=== PATIENT | female | born 1990 | race Two or more races ===

== ENCOUNTER 2020-02-25 10:28 | Emergency (ER) | payer OTHER ==
[~2020-02-25] VITALS: Ht 162.6 cm; Wt 140.6 kg
[2020-02-25] MEDS ORDERED: SPRINTEC 28 DA1 EACH (10:35)
[2020-03-13] MEDS ORDERED: AYGESTIN5 MG PO (12:15)
[2020-03-13] MEDS ORDERED: TRAMADOL PO (12:16)
== END 2020-02-25 18:17 | disposition home or self-care (01) ==
LOC: ER 10:28
DX: N39.0 Urinary tract infection, site not specified (principal); N93.8 Other specified abnormal uterine and vaginal bleeding; R10.2 Pelvic and perineal pain

== ENCOUNTER 2020-03-15 05:20 | Day surgery (SDC) | payer OTHER ==
[~2020-03-15 05:20] MED LIST: AYGESTIN5 MG PO; SPRINTEC 28 DA1 EACH; TRAMADOL PO
== END 2020-03-16 14:30 | disposition home or self-care (01) ==
LOC: CIR.AMB 05:20
PROVIDERS: ATTEND Student in an Organized Health Care Education/Training Program
DX: N93.8 Other specified abnormal uterine and vaginal bleeding (principal); Z30.430 Encounter for insertion of intrauterine contraceptive device; Z20.828 Contact with and (suspected) exposure to other viral communicable diseases

== ENCOUNTER 2021-07-28 13:15 | Inpatient (IN) | payer OTHER ==
[~2021-07-28] VITALS: Ht 162.6 cm; Wt 142.9 kg
[2021-07-28] MEDS ORDERED: CIPRO500 MG PO (15:41)
[2021-07-30] MEDS ORDERED: MEGESTROL ACETA40 MG (13:32)
== END 2021-08-01 20:31 | disposition home or self-care (01) | DRG 743 ==
LOC: OB/GYN 07-30 10:30 → O/R 07-30 11:49 → OB/GYN 07-30 11:49
PROVIDERS: ADMIT Specialist; ATTEND Specialist
PROC: 0DNW0ZZ Release Peritoneum, Open Approach (ICD-10-PCS; 2021-07-30)
PROC: 0DBU0ZZ Excision of Omentum, Open Approach (ICD-10-PCS; 2021-07-30)
PROC: 0UT90ZZ Resection of Uterus, Open Approach (ICD-10-PCS; principal; 2021-07-30 10:30)
DX: D25.1 Intramural leiomyoma of uterus (principal); N80.0 Endometriosis of uterus; N72 Inflammatory disease of cervix uteri; Z20.822 Contact with and (suspected) exposure to COVID-19